=== PATIENT | male | born 1980 | race Native Hawaiian/Other Pacific Islander ===

== ENCOUNTER 2017-06-26 23:05 | Emergency (ER) | payer OTHER ==
[~2017-06-26] VITALS: Ht 190.5 cm; Wt 145.2 kg
== END 2017-06-27 00:13 | disposition home or self-care (01) ==
LOC: ED 23:05
DX: R22.43 Localized swelling, mass and lump, lower limb, bilateral (principal); R39.198 Other difficulties with micturition
CPT/HCPCS: 80307; 81000; 99281; G0479